=== PATIENT | male | born 1980 | race Caucasian/White ===

== ENCOUNTER 2017-07-13 10:19 | Emergency (ER) | payer OTHER, BC, SELFPAY ==
[2017-07-13 10:38] VITALS: BP 132/98; PULSE 118; RESP 18; TEMP 36.7; O2SAT 95; BMI 33.1
--- NOTE | 2017-07-13 12:09 | [facility].EDWNDL ---
ED Disposition Clinical Impression: Laceration of left thumb Qualifiers: Encounter type: initial encounter Damage to nail status: without damage Foreign body presence: without foreign body Qualified Code(s): S61.012A - Laceration without foreign body of left thumb without damage to nail, initial encounter Disposition: Home, Self-Care Condition on Discharge: Good Instructions: DI for Laceration Repair Additional Instructions: Please keep wound clean and dry, change dressing daily, watch carefully for signs of possible local infection, follow-up with UTC in 8-10 days for suture removal. Time of Disposition: 12:09 - Critical Care Critical Care Time: No Attestation: On 07/13/17, the high probability of a clinically significant, sudden or life threatening deterioration of the following system(s) required my full and direct attention, intervention and personal management. The time I documented below is in addition to time spent performing reported procedures but includes the following listed in this critical care notation. Medical Decision Making - Medical Records Medical records reviewed: Yes: I reviewed the patient's medical records. - Eduardo Inquiry Pt receiving controlled substance: No Vital Signs: 07/13/17 10:38 07/13/17 12:18 Temperature 98.0 F 97.7 F Temperature Source Oral Oral Pulse Rate 108 H Pulse Rate [Left Brachial] 118 H Respiratory Rate 18 18 Blood Pressure 149/97 Blood Pressure [Left Arm] 132/98 Blood Pressure Mean [Left Arm] 109 Blood Pressure Source Automatic Cuff Blood Pressure Source [Left Arm] Automatic Cuff Blood Pressure Position Sitting Blood Pressure Position [Left Arm] Sitting 02 Sat by Pulse Oximetry 95 Oxygen Delivery Method Room Air Room Air Wound/Laceration HPI - General Chief Complaint: Wound/Laceration Stated Complaint: [id number] Lac left thumb Time Seen by Provider: 07/13/17 11:00 Mode of Arrival: Ambulatory Limitations: No Limitations Description of Symptoms (Recalled from ER Triage Doc. by RN): Laceration to L thumb - History of Present Illness HPI narrative: Left thumb laceration while using a scalpel, just [employer], while at work (working on a project). Onset (ago): hour(s) (1/2) Extremity Location: Left: hand Place: work Patient tetanus UTD: Yes Context: accidental Associated symptoms: pain [facility] History I have reviewed the patient's past medical history: Yes - Social History Educational Level: Completed College Alcohol Intake: never - Psychiatric History Expresses thoughts of harming self/others: None Suicide Plan Description: No Plan ROS Obtained: Yes All systems reviewed & no additional complaints, Yes Systems reviewed as appropriate & no additional complaints - Integumentary/Breasts Skin/Breast: Reports system reviewed and no additional complaints, except as docu, Reports as per HPI, Reports lesions (left thumb laceration) Physical Exam - General General appearance: alert, in no apparent distress - Head Head exam: atraumatic, normocephalic, normal inspection - Eye Eye exam: Present: normal appearance, PERRL, EOMI - ENT ENT exam: Present: normal exam, normal oropharynx, mucous membranes moist, TM's normal bilaterally, normal external ear exam - Neck Neck exam: Present: normal inspection, full ROM, trachea midline. Absent: meningismus, lymphadenopathy - Chest Chest inspection: Present: normal inspection, symmetric chest wall rise. Absent: tenderness - Respiratory Respiratory exam: Present: normal lung sounds bilaterally. Absent: respiratory distress - Cardiovascular Cardiovascular exam: Present: regular rate, normal rhythm. Absent: JVD - Abdominal Exam Abdominal exam: Present: soft, normal bowel sounds. Absent: distention, tenderness, guarding - Extremities Exam Extremities exam: Present: normal inspection, full ROM, normal capillary refill. Absent: calf tenderness - Back Exam Back exam: Present: normal inspection
[2017-07-13 12:18] VITALS: BP 149/97; PULSE 108; RESP 18; TEMP 36.5; O2SAT 98
== END 2017-07-13 12:30 | disposition home or self-care (01) ==
LOC: UTC 10:30 → ER 10:35
PROVIDERS: Emergency Provider Emergency Medicine
DX: S61.012A Laceration without foreign body of left thumb without damage to nail, initial encounter (principal); W26.0XXA Contact with knife, initial encounter; Y92.69 Other specified industrial and construction area as the place of occurrence of the external cause; Y99.0 Civilian activity done for income or pay
CPT/HCPCS: 12001; 99281

== ENCOUNTER 2017-07-22 11:16 | Outpatient (CLI) | payer OTHER, BC, SELFPAY | END 2017-07-22 11:28 | disposition home or self-care (01) | LOC: UTC.OUT 11:41 | PROVIDERS: Visit Provider Nurse Practitioner | DX: S61.012D Laceration without foreign body of left thumb without damage to nail, subsequent encounter (principal) ==